=== PATIENT | female | born 1985 | race African-American/Black ===

== ENCOUNTER 2022-01-23 10:24 | Outpatient (REF) | payer OTHER, SELFPAY ==
--- NOTE | ~2022-01-23 | XR_ITS ---
EXAMINATION: XR SACROILIAC JOINTS CLINICAL INFORMATION: Sacrococcygeal disorder. COMPARISON: None TECHNIQUE: AP and bilateral Judet views of the sacroiliac joints FINDINGS: Bones and soft tissues are normal. No fracture. Alignment is anatomic. Sacroiliac joint spaces are well-maintained without erosions or surrounding sclerosis. XR/XR sacroiliac joint min 3V IMPRESSION: Normal sacroiliac joints.
[2022-01-23 11:11] LABS: MANUAL DIFF FLAG NO
[2022-01-23 11:42] LABS: Basophils Percent Auto 0.4 % (0-2); Eosinophils Absolute Auto 0.3 X10*3/uL (0.0-0.4); Eosinophils Percent Auto 4.3 % (0-4); Hematocrit 43.5 % (37.0-47.0); Imm Gran Abs Auto 0.03 X10*3/uL (0.00-0.03); Imm Gran Pct Auto 0.4 % (0.0-0.4); Lymphocytes Absolute Auto 2.4 X10*3/uL (1.2-4.9); Mean Corpuscular HGB Conc 32.2 g/dl (31.0-35.0); Mean Corpuscular Hemoglobin 28.8 pg (27.0-33.0); Mean Corpuscular Volume 89.5 fL (80.0-98.0); Mean Platelet Volume 10.9 fL (9.4-12.3); Monocytes Absolute Auto 0.7 X10*3/uL (0.1-1.2); Monocytes Percent Auto 9.3 % (2-11); Neutrophils Absolute Auto 3.8 x10*3/uL (2.0-8.3); Neutrophils Percent Auto 52.6 % (45-73); Platelet Count 301 X10*3/uL (160-400); Red Blood Count 4.86 X10*6/uL (4.20-5.50); Red Cell Distribution Width 12.8 % (11.0-16.0); White Blood Count 7.2 X10*3/uL (4.8-10.8)
[2022-01-23 12:22] LABS: Erythrocyte Sedimentation Rate 13 MM/HR (0-20)
[2022-01-23 12:37] LABS: Alanine Aminotransferase 11 U/L (0-31); Albumin Level 4.5 g/dL (3.5-5.0); Alkaline Phosphatase 191 U/L (39-117); Anion Gap 15 (12-20); Aspartate Amino Transferase 14 U/L (5-31); Bilirubin Total 0.5 mg/dL (0.0-1.0); Blood Urea Nitrogen 13 mg/dL (9-16); C Reactive Protein 1.05 mg/dL (< or = 0.50); Calcium 9.6 mg/dL (8.4-10.2); Carbon Dioxide 24 mmol/L (22-29); Chloride 104 mmol/L (96-108); Estimated Glomerular Filt Rate > 60; Glucose Random 90 mg/dL (60-115); Potassium 4.8 mmol/L (3.3-5.1); Sodium 138 mmol/L (135-145); Total Protein 8.2 g/dL (6.5-8.0)
[2022-01-26 12:32] LABS: Alkaline Phosphatase Bone 48.6 mcg/L (5.3-19.5)
[2022-01-31 10:56] LABS: HLA B27 Negative (Negative)
== END 2022-01-23 10:25 | disposition home or self-care (01) ==
LOC: HO.LAB 10:24
PROVIDERS: PCP Internal Medicine; Visit Provider Nurse Practitioner Family
DX: M53.3 Sacrococcygeal disorders, not elsewhere classified (principal); M54.50 Low back pain, unspecified; M79.7 Fibromyalgia
CPT/HCPCS: 36415; 72202; 80053; 84075; 85025; 85652; 86140; 86812; 99202

== ENCOUNTER → 2022-02-23 12:51 | Outpatient (BNVA) | payer OTHER, SELFPAY | PROVIDERS: PCP Internal Medicine; Visit Provider Nurse Practitioner Family | DX: M54.50 Low back pain, unspecified (principal); M79.7 Fibromyalgia; R74.8 Abnormal levels of other serum enzymes; M53.3 Sacrococcygeal disorders, not elsewhere classified | CPT/HCPCS: 99212 ==

== ENCOUNTER 2022-04-14 18:16 | Outpatient (REF) | payer OTHER, SELFPAY ==
--- NOTE | ~2022-04-14 | MR_ITS ---
EXAMINATION: MR PELVIS WITHOUT CONTRAST CLINICAL INFORMATION: Sacrococcygeal disorders, not elsewhere specified. Patient reports pain, unable to sit long with symptoms x6 months. No injury. COMPARISON: None TECHNIQUE: Multiplanar MR imaging was obtained through the pelvis without contrast material on a 1.5 Sussy magnet. The [id number] is centered at the sacrum and SI joints, though the coccyx is also included on sagittal and oblique coronal images. FINDINGS: No fracture or malalignment. Marrow signal is normal. No osseous lesions. There are small marginal osteophytes of the SI joints bilaterally with foci of subchondral sclerosis as well as mild chondral thinning, consistent with mild osteoarthritis. No evidence of sacroiliitis. No significant subchondral edema signal or discrete erosions. No sacroiliac fluid collections or synovitis. The coccyx appears appropriately aligned without an acute fracture or subluxation. Bone marrow signal is normal. No surrounding soft tissue edema. There is a focal left paracentral disc protrusion at L5-S1 which abuts the traversing left S1 nerve root in the subarticular zone. Imaged portion of the lower lumbar spine is otherwise unremarkable. No transitional anatomy. Intrapelvic soft tissues are unremarkable. Uterus is normal in appearance. No adnexal lesions. Imaged intrapelvic bowel is unremarkable. No appreciable adenopathy. Musculature is normal in signal intensity. No appreciable atrophy. Piriformis muscles are symmetric. MR/MR pelvis wo con IMPRESSION: 1. 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 No evidence of sacroiliitis. Normal MR appearance of the coccyx. No acute osseous abnormalities. 2. Left paracentral disc protrusion at L5-S1 abuts the traversing left S1 nerve root in the subarticular zone.
== END 2022-04-14 18:17 | disposition home or self-care (01) ==
LOC: HO.MRI 18:16
PROVIDERS: Visit Provider Nurse Practitioner Family
DX: M53.3 Sacrococcygeal disorders, not elsewhere classified (principal)
CPT/HCPCS: 72195

== ENCOUNTER → 2022-08-08 15:16 | Outpatient (BNVA) | payer OTHER, SELFPAY | PROVIDERS: PCP Internal Medicine; Visit Provider Nurse Practitioner Family | DX: M79.7 Fibromyalgia (principal); M51.27 Other intervertebral disc displacement, lumbosacral region; M46.1 Sacroiliitis, not elsewhere classified; R74.8 Abnormal levels of other serum enzymes | CPT/HCPCS: 99212 ==

== ENCOUNTER 2024-01-17 13:52 | Outpatient (AMB) | payer OTHER, SELFPAY ==
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
[2024-01-17 14:02] VITALS: BP 112/68; PULSE 96; RESP 16; O2SAT 98; BMI 28.7
== END 2024-01-17 14:45 | disposition home or self-care (01) ==
PROVIDERS: PCP Internal Medicine; Visit Provider Psychiatry & Neurology Neurology
DX: R40.4 Transient alteration of awareness (principal); G43.909 Migraine, unspecified, not intractable, without status migrainosus
CPT/HCPCS: 99204

== ENCOUNTER → 2024-01-17 13:52 | Outpatient (BNVA) | payer OTHER, SELFPAY | PROVIDERS: PCP Internal Medicine; Visit Provider Psychiatry & Neurology Neurology ==

== ENCOUNTER 2025-05-14 09:14 | Outpatient (REF) | payer OTHER, SELFPAY ==
--- OUTSIDE RECORDS SUMMARY | 2025-05-14 09:40 | XMS_ITS | Encounter Summary ---
Author Organization [employer] Address [address] [place] [address] Care Team Providers Care Photographic Process Attendant Name Role Phone Bayron Hernandez MD Primary Care Provide r Reason for Visit * Reason Comments UTI Encounter Details Date Type Department Care Team ([facility] st Contact Info) Description 05/14/2025 9:40 AM EST Office Visit [facility] [address] [place] [address] [phone] Jose Alfredo Boyd MD [address] [place] [place], [place] [phone] Dysuria Social History Tobacco Use Types Packs/Day Years Used Date Smoking Tobacco: Never Passive Smoke Exposure: Never Smokeless Tobacco: Never Tobacco Cessation:Counseling Given: Not Answered Depression Answer Date Recorded Patient Health Questionnaire-9 Score 13 04/30/2025 Patient Health Questionnaire-9 Score 13 04/30/2025 Last PHQ-9: Questionnaire Data Not on file 1 06/30/2024 Housing Stability Answer Date Recorded What is your housing situation today? I have stacey cuenca 04/30/[address] you li ve. Do you have problems with any of the following? None of the above 04/30/2025 Food Insecurity Answer Date Recorded Within the past 12 months, y ou worried that your food would run out before you got money to buy more: Never True 04/30/2025 Within the past 12 months,th e food you bought just didn't last and you didn't have enough money to get more: Never True 11/2024 Transportation Answer Date Recorded In the past 12 months, has l ack of transportation kept you from medical appts, meetings, work or from getting things needed for daily living? No 04/30/2025 Utilities Answer Date Recorded In the past 12 months, has t he electric, gas, oil or water company threatened to shut off services in your home? No 04/30/2025 Depression Answer Date Recorded Patient Health Questionnaire-2 Score 2 04/30/2025 Internet Access Answer Date Recorded Internet Access Q1 Yes 04/30/2025 Internet Access Q2 Not on file 04/30/2025 Comments Unknown Sex and Gender Information Value Date Recorded Sex Assigned at Female 03/18/2025 3:00 PM EDT Legal Sex Female 1:30 PM EDT Gender Identity Female 03/18/2025 3:00 PM EDT Sexual Orientation Straight 03/18/2025 3: 00 PM EDT documented as of this encounter Last Filed Vital Signs Vital Sign Reading Time Taken Comments Blood Pressure 106/74 05/14/2025 9:34 AM EST Pulse 86 05/14/2025 9:34 AM EST Temperature 36.8 C (98.3 F) 05/14/2025 9:34 AM EST Respiratory Rate 16 05/14/2025 9:34 AM EST Oxygen Saturation 98% 05/14/2025 9:34 AM EST Inhaled Oxygen Concentration - - Weight 84.8 kg (187 lb) 05/14/2025 9:34 AM EST Height - - Body Mass Index 31.12 04/30/2025 9:46 AM EST documented in this encounter Progress Notes * Jose Alfredo Boyd MD - 05/14/2025 9:40 AM EST Subjective History was provided by the patient. Luz Maria Valera is a 39 y.o. female who presents for evaluation of 4-day duration of dysuria and urinary urgency. Denies hematuria. Some chills, but denies fever. Mild nausea. No vomiting or diarrhea. Denies back pain. LMP ~10 days ago. Last UTI was >1 year ago. Took OTC AZO, but no improvement of her symptoms. Objective Vitals: 05/14/25933 BP: 106/74 BP Location: Right arm Patient Position: Sitting BP Cuff Size: Adult Pulse: 86 Resp: 16 Temp: 98.3 ??F (36.8 ??C) TempSrc: Temporal SpO2: 98% Weight: 187 lb (84.8 kg) Physical Exam Vitals reviewed. Constitutional: General: She is not in acute distress. Appearance: Normal appearance. She is not ill-appearing, toxic-appearing or diaphoretic. HENT: Head: Normocephalic and atraumatic. Right Ear: External ear normal. Left Ear: External ear normal. Nose: Nose normal. Mouth/Throat: Mouth: Mucous membranes are dry. Pharynx: Oropharynx is clear. Eyes: Conjunctiva/sclera: Conjunctivae normal. Pulmonary: Effort: Pulmonary effort is normal. Abdominal: General: Abdomen is flat. There is no distension. Palpations: Abdomen is soft. Tenderness: There is no abdominal tenderness. There is no right CVA tenderness, left CVA tenderness, guarding or rebound. Musculoskeletal: General: Normal range of motion. Cervical back: Neck supple. Skin: General: Skin is warm and dry. Neurological: General: No focal deficit present. Mental Status: She is alert and oriented to person, place, and time. Psychiatric: Mood and Affect: Mood normal. Behavior: Behavior normal. Office Visit on 05/14/2025 Component Date Value Ref Range Status Color, UA 05/14/2025 Yellow Final Clarity, UA 05/14/2025 Clear Final Glucose, UA 05/14/2025 Negative Final Bilirubin, UA 05/14/2025 Negative Final Ketones, UA 05/14/2025 Negative Final Spec Grav, UA 05/14/2025 1.020 Final Blood, UA 05/14/2025 Positive (A) Negative, None Detected Final pH, UA 05/14/2025 6.0 Final Protein, UA 05/14/2025 Negative Final Urobilinogen, UA 05/14/2025 0.2 Final Leukocytes, UA 05/14/2025 Negative Negative, Rare, Trace Final Nitrite, UA 05/14/2025 Negative Negative, None Detected Final Appearance, UA 05/14/2025 OK Final Luz Maria was seen today for uti. Diagnoses and all orders for this visit: Dysuria - POCT urinalysis dipstick manually resulted (CPT 96262) - Culture, Urine, Routine - sulfamethoxazole-trimethoprim (Bactrim DS) 800-160 MG tablet; Take 1 tablet by mouth 2 times daily for 3 days. Patient presents to [facility] with dysuria and urinary urgency POC UA positive for blood, but negative for leukocytes/nitrite No clinical evidence of acute abdomen or pyelonephritis Will send out Ucx Will start antibiotic medication for presumptive UTI Potential adverse effects of the medication reviewed Probiotic use discussed Allergies reviewed Discussed strategies to prevent future infections Advised to contact the clinic if no improvement of symptoms Indications for UC/ER use reviewed documented in this encounter Plan of Treatment Scheduled Orders Name Type Priority Associated Diagnoses Orde r Schedule Culture, Urine, Routine Microbiology Routine Dysuria Ordered: 05/14/2025 documented as of this encounter Procedures Procedure Name Priority Date/Time Associated Diagnosis Comments POCT URINALYSIS DIPSTICK Routine 05/14/2025 9:45 AM EST Dysuria documented in this encounter Results * (ABNORMAL) POCT urinalysis dipstick manually resulted (CPT 19261) (05/14/2025 9:45 AM EST) Color, UA Yellow Clarity, UA Clear Glucose, UA Negative Bilirubin, UA Negative Ketones, UA Negative Spec Grav, UA 1.020 Blood, UA Positive(A) Negative, None Detected pH, UA 6.0 Protein, UA Negative Urobilinogen, UA 0.2 Leukocytes, UA Negative Negative, Rare, Trace Nitrite, UA Negative Negative, None Detected Appearance, UA OK Urine (Urine, Random) 05/14/2025 9:45 AM EST us Jose Alfredo Boyd MD POINT OF CARE TEST ENTER/EDIT OR DERABLES Final Result documented in this encounter Visit Diagnoses Diagnosis Dysuria documented in this encounter Additional Health Concerns Assessment Noted Time PHQ-9 Depression Total Score: 13 025 10:43 AM EST documented as of this encounter Care Teams Photographic Process Attendant Relationship Specialty Start Date End Date Bayron Hernandez MD [address] [place] [id number] PCP - General Internal Medicine 04/30/25 documented as of this encounter
--- OUTSIDE RECORDS SUMMARY | 2025-05-14 10:15 | XMS_ITS | Encounter Summary ---
Author Organization [employer] Address [address] [place] [address] Care Team Providers Care Financial Assistance Specialist Name Role Phone Bayron Hernandez MD Primary Care Provide r Reason for Visit * Reason Comments Acupuncture Encounter Details Date Type Department Care Team ([facility] st Contact Info) Description 05/14/2025 10:15 AM EST Office Visit [facility] [address] [place], [place] [phone] Allyson Ayers MD [address] [place], [place] [phone] Fibromyalgia (Primary Dx) Social History Tobacco Use Types Packs/Day Years Used Date Smoking Tobacco: Never Passive Smoke Exposure: Never Smokeless Tobacco: Never Depression Answer Date Recorded Patient Health Questionnaire-9 [...] PM EDT documented as of this encounter Progress Notes * Allyson Ayers MD - 05/14/2025 10:15 AM EST Subjective Patient ID: Luz Maria Valera is a 39 y.o. female who presents for acupuncture. Luz Maria is here for acupuncture treatment #2 for fibromyalgia pain. She experienced some relaxation and stress relief after the first treatment. Review of Systems Psychiatric/Behavioral: Negative for dysphoric mood. The patient is not nervous/anxious. Objective Physical Exam Constitutional: Appearance: Normal appearance. Skin: General: Skin is warm and dry. Neurological: Mental Status: She is alert and oriented to person, place, and time. Assessment/Plan Diagnoses and all orders for this visit: Fibromyalgia Written consent obtained for ear acupuncture. Ears prepped with alcohol pad. Five ear points needled bilaterally: Sympathetic, Douglas Men, Kidney, Liver and Lung. Treatment duration: 30 minutes. Good hemostasis. Patient tolerated well. Follow up weekly for repeat acupuncture treatments as desired. documented in this encounter Plan of Treatment Not on file documented as of this encounter Visit Diagnoses Diagnosis Fibromyalgia- Primary Unspecified myalgia and myositis documented in this encounter Additional Health Concerns Assessment Noted Time PHQ-9 Depression Total Score: 13 025 10:43 AM EST documented as of this encounter Care Teams Financial Assistance Specialist Relationship Specialty Start Date End Date Bayron Hernandez MD [address] [place] [id number] PCP - General Internal Medicine 04/30/25 documented as of this encounter
[2025-05-14 11:16] LABS: MANUAL DIFF FLAG NO
[2025-05-14 11:22] LABS: Hematocrit 40.2 % (37.0-47.0); Hemoglobin 12.4 g/dl (12.0-16.0); Imm Gran Abs Auto 0.01 X10*3/uL (0.00-0.03); Imm Gran Pct Auto 0.1 % (0.0-0.4); Lymphocytes Absolute Auto 2.3 X10*3/uL (1.2-4.9); Mean Corpuscular HGB Conc 30.8 g/dl (31.0-35.0); Mean Corpuscular Hemoglobin 27.6 pg (27.0-33.0); Mean Corpuscular Volume 89.3 fL (80.0-98.0); NRBC Abs Auto 0.000 X10*3/uL (0.0-0.012); NRBC Pct Auto 0.0 /100WBC (0.0-0.2); Platelet Count 374 X10*3/uL (160-400); Red Blood Count 4.50 X10*6/uL (4.20-5.50); White Blood Count 9.0 X10*3/uL (4.8-10.8)
--- OUTSIDE RECORDS SUMMARY | 2025-05-14 11:57 | XMS_ITS | Encounter Summary ---
Author Organization [employer] Address [address] [place] [address] Care Team Providers Care Transmission Mechanic Name Role Phone Bayron Hernandez MD Primary Care Provide r Encounter Details Date Type Department Care Team (Latest Contact Info) Description 05/14/2025 Travel Social History Tobacco Use Types Packs/Day Years Used Date Smoking Tobacco: Never Passive Smoke Exposure: Never Smokeless Tobacco: Never Depression Answer Date Recorded Patient Health Questionnaire-9 Score 13 04/30/2025 Patient Health Questionnaire-9 Score 13 04/30/2025 Last PHQ-9: Questionnaire Data Not on file 1 06/30/2024 Housing Stability Answer Date Recorded What is your housing situation today? I have staceyelva cuenca 04/30/[address] you [...] PM EDT documented as of this encounter Plan of Treatment Not on file documented as of this encounter Visit Diagnoses Not on filedocumented in this encounter Additional Health Concerns Assessment Noted Time PHQ-9 Depression Total Score: 13 025 10:43 AM EST documented as of this encounter Care Teams Transmission Mechanic Relationship Specialty Start Date End Date Bayron Hernandez MD [address] [place] [id number] PCP - General Internal Medicine 04/30/25 documented as of this encounter
--- OUTSIDE RECORDS SUMMARY | 2025-05-14 11:58 | XMS_ITS | Clinical Summary ---
Author Organization [employer] Address [address] [place] [address] Care Team Providers Care [employer] Inspector Name Role Phone Bayron Hernandez MD Primary Care Provide r Allergies Active Allergy Reactions Criticality Noted Date Comments Iodine Swelling 06/02/2013 Ketorolac 06/03/2024 Oxycodone-Acetaminophen 05/01/2018 Penicillins 05/29/2013 Povidone-Iodine 07/06/2022 Shellfish Allergy Hives 08/22/2013 Medications loratadine (Claritin) 10 MG tablet Take 10 mg by mouth Once per day. 08/21/19 15 Active ibuprofen 600 MG tablet Take 600 mg by mouth every 8 (eight) hours if needed for moderate pain. 10/14/19 22 Active amitriptyline (Elavil) 50 MG tablet Take 50 mg by mouth at bedtime. 04/23/20 24 Active budesonide-form oterol (Symbicort) 160-4.5 MCG/ACT inhaler Inhale 2 puffs 2 times daily. 10/26/19 23 Active Diclofenac Sodium 1 % gel Apply 1 g topically if needed in the morning, at noon, in the evening, and at bedtime. 09/08/19 23 Active diphenhydrAMINE (BENADryl) 25 MG tablet Take 25 mg by mouth if needed at bedtime. 08/19/19 21 Active mesalamine (Canasa) 1000 MG suppository Insert 1,000 mg into the rectum at bedtime. 12/26/19 23 026 Active ondansetron (Zofran) 4 MG tablet Take 4 mg by mouth every 8 (eight) hours if needed. 10/14/19 22 Active triamcinolone (Nasacort) 55 MCG/ACT nasal inhaler Administer 55 mcg into affected nostril(s) Once per day. 07/06/19 23 Active simethicone (Mylicon) 80 MG chewable tabletIndicatio ns:LLQ abdominal pain,Flatulence Chew 1 tablet (80 mg) every 8 (eight) hours if needed for flatulence for up to 10 days. 30 tablet 5 2:01 PM EST 04/30/20 25 Active albuterol (Ventolin HFA) 108 (90 Base) MCG/ACT inhalerIndicati ons:Mild intermittent asthma without complication Inhale 2 puffs every 6 (six) hours if needed for wheezing. 18 g 3 5 2:01 PM EST 04/30/20 25 Active montelukast (Singulair) 10 MG tabletIndicatio ns:Mild intermittent asthma without complication Take 1 tablet (10 mg) by mouth at bedtime. 30 tablet 3 5 2:01 PM EST 04/30/20 25 Active famotidine (Pepcid) 40 MG tabletIndicatio ns:LLQ abdominal pain,Flatulence Take 1 tablet (40 mg) by mouth Once per day. 30 tablet 3 5 2:01 PM EST 04/30/20 25 Active SUMAtriptan (Imitrex) 25 MG tablet Take 1 tablet (25 mg) by mouth 1 (one) time if needed for migraine. 9 tablet 3 5 2:01 PM EST 04/30/20 25 Active sulfamethoxazol e-trimethoprim (Bactrim DS) 800-160 MG tabletIndicatio ns:Dysuria Take 1 tablet by mouth 2 times daily for 3 days. 6 tablet 5 11:01 AM EST 05/14/20 25 Active albuterol (Ventolin HFA) 108 (90 Base) MCG/ACT inhaler Inhale 2 puffs every 6 (six) hours if needed. 09/19/19 24 025 Discontinued(R eorder (will not trigger notification to Pharmacy)) montelukast (Singulair) 10 MG tablet Take 10 mg by mouth at bedtime. 025 Discontinued(R eorder (will not trigger notification to Pharmacy)) famotidine (Pepcid) 40 MG tablet Take 40 mg by mouth Once per day. 12/21/19 22 025 Discontinued(R eorder (will not trigger notification to Pharmacy)) SUMAtriptan (Imitrex) 25 MG tablet Take 25 mg by mouth 1 (one) time if needed. 06/03/20 24 025 Discontinued(R eorder (will not trigger notification to Pharmacy)) Active Problems Problem Noted Date Diagnosed Date Class 1 obesity 04/30/2025 Assessment & Plan (04/30/2025 12:50 PM EST): Patient has been counseled and educated about diet and exercise. Personal goal of weight loss discussed Will refer to our auto driver Preventative health care 04/30/2025 Assessment & Plan (04/30/2025 10:03 AM EST): Mammogram: 04/04/2022 Normal Pap: > 5 years ago, will refer to [facility] CASTANO abdominal pain 04/30/2025 Assessment & Plan (04/30/2025 12:56 PM EST): Patient with diffuse abdominal pain and bloating, at the moment no diarrhea no melena. On exam she has difuse tenderness and mildly more prominent LLQ, No rebound , no guarding. Plan: Continue dietary recommendations, low protein to decrease flatulence and bloating. 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 Grover Grant Last seen 01/08/2025. Per his note: Patient with c/o intermittent lower abd cramping diarrhea mucus and blood. Colonoscopy 2019 showed ulcerative proctitis which responded to Canasa supp. Had ?UC age 18. No trigger. No recent change in meds diet etc. Back then he recommended to: re-treat with Canasa supposity 1000 mg hs. If fails to improve further evaluation, stool studies Ct colonoscopy Pt is requesting to be seen by a local Quarter Supervisor. Referral has been placed Nephrolithiasis 03/15/2016 Assessment & Plan (04/30/2025 12:57 PM EST): Patient reports a history of this, currently not complaining Vitamin D deficiency 08/10/2013 Assessment & Plan (04/30/2025 12:50 PM EST): Will repeat level Currently not on suppplementation Encounters Date Type Department Care Team Description 05/14/2025 10:15 AM EST Office Visit [facility] [address] [place] [phone] Allyson Ayers MD Fibromyalgia (Primary Dx) 05/14/2025 9:40 AM EST Office Visit [facility] [address] [place] [phone] Jose Alfredo Boyd MD Dysuria 05/14/2025 Travel 04/30/2025 10:30 AM EST Office Visit [facility] [address] [place] [phone] Allyson Ayers MD Fibromyalgia (Primary Dx) 04/30/2025 9:30 AM EST Office Visit [facility] [address] [place] [phone] Bayron Hernandez MD Mild intermittent asthma without complication (Primary Dx); Vitamin D deficiency; Ulcerative proctitis without complication (CMS/HCC) ([facility]); Fibromyalgia; Class 1 obesity; LLQ abdominal pain; Flatulence; Seasonal allergic rhinitis, unspecified trigger; Nephrolithiasis; Preventative health care; Dietary counseling; Exercise counseling 04/30/2025 Travel 04/29/2025 Telephone [facility] [address] [place], [place] [phone] Katina Palma MEKA 04/23/2025 Patient Outreach [facility] [address] [place], [place] [phone] Bayron Hernandez MD Pre-visit Planning ([facility] unable to reach [facility] ) from Last 3 Months Immunizations Immunization Administration Dates Next Due Influenza Injectable Quadriv alant Preservative Free IIV4 [facility] 07/15/2021 Influenza, IIV3, injectable 04/16/2017, 3 Influenza, seasonal, injectable, preservative fr ee 03/26/2015,05/29/2013 Tdap 02/10/2021,04/01/2015 Social History Tobacco Use Types Packs/Day Years [...] Orientation Straight 03/18/2025 3: 00 PM EDT Last Filed Vital Signs Vital Sign Reading Time Taken Comments Blood Pressure 106/74 05/14/2025 9:34 AM EST Pulse 86 05/14/2025 9:34 AM EST Temperature 36.8 C (98.3 F) 05/14/2025 9:34 AM EST Respiratory Rate 16 05/14/2025 9:34 AM EST Oxygen Saturation 98% 05/14/2025 9:34 AM EST Inhaled Oxygen Concentration - - Weight 84.8 kg (187 lb) 05/14/2025 9:34 AM EST Height 165.1 cm (5' 5 ) 04/30/2025 9:46 AM EST Body Mass Index 31.12 04/30/2025 9:46 AM EST Plan of Treatment Health Maintenance Due Date Last Done Comments HIV Screening 1986 Disability Screening 1986 Alcohol/Substance Use Screening 1998 Family Planning (PISQ) 2001 HPV Vaccines (1 - 3-dose series) 2001 Hepatitis C Screening 2004 Hepatitis B Vaccines (1 of 3 - 19+ 3-dose series) 2005 Pneumococcal Vaccine: Pediatrics (0 to 5 Years) and At-Risk Patients (6 to 49) Years (1 of 2 - PCV) 2005 Pap Smear 09/18/2007 Cervical Cancer Screening 2016 HPV/Cotest 2016 COVID-19 Vaccine ( - season) 2025 08/24/2020, 07/27/2020 Influenza Vaccine (#1) 2025 , 04/16/2017, 03/26/2015, Additional history exists Depression Monitoring 10/28/2025 04/30/2025, 025 SDOH Screening 04/30/2026 04/30/2025 Tobacco Screening 05/14/2026 05/14/2025 DTaP/Tdap/Td Vaccines (3 - Td or Tdap) 02/10/2031 02/10/2021, 04/01/2015 Zoster Vaccines (1 of 2) 2036 RSV Patients and Patients Aged 60 years or older (1 - 1-dose 75+ series) 2061 HIB Vaccines Aged Out No longer eligi ble based on patient's age to complete this topic Hepatitis A Vaccines Aged Out No long er eligible based on patient's age to complete this topic IPV Vaccines Aged Out No longer eligi ble based on patient's age to complete this topic Meningococcal B Vaccine Aged Out No l onger eligible based on patient's age to complete this topic Meningococcal Vaccine Aged Out No dharmesh fariha eligible based on patient's age to complete this topic RSV under 20 months Aged Out No longe r eligible based on patient's age to complete this topic Rotavirus Vaccines Aged Out No longer eligible based on patient's age to complete this topic Procedures Procedure Name Priority Date/Time Associated Diagnosis Comments CBC WITH AUTO DIFFERENTIAL Routine 05/14/2025 9:57 AM EST Ulcerative proctitis without complication (CMS/HCC) ([facility]) POCT URINALYSIS DIPSTICK Routine 05/14/2025 9:45 AM EST Dysuria from Last 3 Months Results * (ABNORMAL) CBC auto differential (05/14/2025 9:57 AM EST) White Blood Count 9.0 4.8 - 10.8 X10*3/uL [facility] Red Blood Count 4.50 4.20 - 5.50 X10*6/uL [facility] Hemoglobin 12.4 12.0 - 16.0 g/dl [facility] Hematocrit 40.2 37.0 - 47.0 % [facility] Mean Corpuscular Volume 89.3 80.0 - 98.0 fL [facility] Mean Corpuscular Hemoglobin 27.6 27.0 - 33.0 pg [facility] Mean Corpuscular HGB Conc 30.8(L) 31.0 - 35.0 g/dl [facility] Red Cell Distribution Width 13.6 11.0 - 16.0 % [facility] Platelet Count 374 160 - 400 X10*3/uL [facility] Mean Platelet Volume 11.2 9.4 - 12.3 fL [facility] Neutrophils Percent Auto 55.2 45 - 73 % [facility] Imm Gran Pct Auto 0.1 0.0 - 0.4 % [facility] Lymphocytes Percent Auto 25.6 20 - 40 % [facility] Monocytes Percent Auto 10.2 2 - 11 % [facility] Eosinophils Percent Auto 8.1(H) 0 - 4 % [facility] Basophils Percent Auto 0.8 0 - 2 % [facility] NRBC Pct Auto 0.0 0.0 - 0.2 /100WBC [facility] Neutrophils Absolute Auto 5.0 2.0 - 8.3 x10*3/uL [facility] Imm Gran Abs Auto 0.01 0.00 - 0.03 X10*3/uL [facility] Lymphocytes Absolute Auto 2.3 1.2 - 4.9 X10*3/uL [facility] Monocytes Absolute Auto 0.9 0.1 - 1.2 X10*3/uL [facility] Eosinophils Absolute Auto 0.7(H) 0.0 - 0.4 X10*3/uL [facility] Basophils Absolute Auto 0.1 0.0 - 0.2 X10*3/uL [facility] NRBC Abs Auto 0.000 0.0 - 0.012 X10*3/uL [facility] Blood Venous blood specimen / Unknown 05/14/2025 9:57 AM EST 05/14/2025 11:10 AM EST us Bayron Membreno MD LAB BLOOD ORDERABLES Final Result [facility] [address], [place] [phone] * (ABNORMAL) POCT urinalysis dipstick manually resulted (CPT 56432) (05/14/2025 9:45 AM EST) Color, UA Yellow Clarity, UA Clear Glucose, UA Negative Bilirubin, UA Negative Ketones, UA Negative Spec Grav, UA 1.020 Blood, UA Positive(A) Negative, None Detected pH, UA 6.0 Protein, UA Negative Urobilinogen, UA 0.2 Leukocytes, UA Negative Negative, Rare, Trace Nitrite, UA Negative Negative, None Detected Appearance, UA OK Urine (Urine, Random) 05/14/2025 9:45 AM EST Jose Alfredo Boyd MD POINT OF CARE TEST ENTER/EDIT OR DERABLES Final Result from Last 3 Months Insurance [facility] Care Teams [employer] Inspector Relationship Specialty Start Date End Date Bayron Hernandez MD [address] [place] [id number] PCP - General Internal Medicine 04/30/25
--- OUTSIDE RECORDS SUMMARY | 2025-05-14 11:58 | XMS_ITS ---
Author Name [facility] Organization Unknown Care Team Organization Name Specialty Phone Email Start Date End Da te [facility] ELIZABETH JUANIS Primary Care 05/02/2022 4
[2025-05-14 11:59] LABS: Alanine Aminotransferase 19 U/L (0-31); Albumin Level 4.3 g/dL (3.5-5.0); Alkaline Phosphatase 135 U/L (39-117); Anion Gap 10 (12-20); Aspartate Amino Transferase 25 U/L (5-31); Blood Urea Nitrogen 17 mg/dL (9-16); Calcium 8.8 mg/dL (8.4-10.2); Carbon Dioxide 25 mmol/L (22-29); Chloride 107 mmol/L (96-108); Cholesterol 203 mg/dL (<200); Estimated Glomerular Filt Rate > 60; HDL Cholesterol 69 mg/dL (>40); Potassium 4.1 mmol/L (3.3-5.1); Sodium 138 mmol/L (135-145); Total Protein 7.8 g/dL (6.5-8.0); Triglycerides 82 mg/dL (<150)
== END 2025-05-14 09:15 | disposition home or self-care (01) ==
LOC: HO.HHCL 09:14
PROVIDERS: PCP Internal Medicine; Visit Provider Internal Medicine
DX: K51.20 Ulcerative (chronic) proctitis without complications (principal); E66.811 Obesity, class 1; E55.9 Vitamin D deficiency, unspecified; R39.9 Unspecified symptoms and signs involving the genitourinary system
CPT/HCPCS: 36415; 80053; 80061; 82306; 84443; 85025; 87086; 87088; 87186